=== PATIENT | male | born 1980 | race Caucasian/White ===

== ENCOUNTER 2024-08-18 23:09 | Emergency (ER) | payer OTHER ==
[~2024-08-18] VITALS: Ht 180.3 cm; Wt 108.9 kg
[~2024-08-18 23:09] MED LIST: ATOR20; CENTRUM SILVER1 EAC2; ENFAMIL DHA-ARA59 ML; FARXIGA10 MG PO; METF500 PO; Prinivil10 MG; ROSUVASTATIN CA20 MG
[2024-08-18 23:42] LABS: BASOPHILS ABSOLUTE AUTO 0.04 K/mm3 (0.00-0.23); BASOPHILS PERCENT AUTO 1 % (0-2); EOSINOPHILS ABSOLUTE AUTO 0.07 K/mm3 (0.00-0.68); EOSINOPHILS PERCENT AUTO 1 % (0-6); Hematocrit 44.7 % (37.0-53.0); Hemoglobin 16.2 g/dL (13.5-17.5); IMMATURE GRAN ABSOLUTE AUTO 0.02 K/mm3 (0.00-0.10); IMMATURE GRAN PERCENT AUTO 0 % (0-1); LYMPHOCYTES ABSOLUTE AUTO 1.28 K/mm3 (0.84-5.20); LYMPHOCYTES PERCENT AUTO 18 % (21-46); MONOCYTES PERCENT AUTO 11 % (4-13); Mean Corpuscular HGB 31.5 pg (26.0-34.0); Mean Corpuscular HGB Conc 36.2 g/dL (31.5-36.5); Mean Corpuscular Volume 87 fL (80-100); Mean Platelet Volume 9.9 fL (9.1-12.4); NEUTROPHILS PERCENT AUTO 69 % (41-73); Platelet Count 189 K/mm3 (150-400); RDW Coefficient Variation 13.4 % (11.7-14.2); RDW Standard Deviation 42.1 fL (35.1-46.3); Red Blood Cell Count 5.14 M/mm3 (4.30-5.90); White Blood Cell Count 7.11 K/mm3 (4.00-11.30)
[2024-08-18] MEDS ORDERED: NS 1,000 ML IV SCH (23:55)
[2024-08-18] MEDS ORDERED: Ketorolac Tromethamine 15mg Vial IV ONE (23:55)
[2024-08-18 23:56] LABS: CORONAVIRUS COVID-19 AG Positive (NEGATIVE); INFLUENZA A AG Negative (NEGATIVE); INFLUENZA B AG Negative (NEGATIVE)
[2024-08-19] LABS: Albumin, Blood 4.2 g/dL (3.4-5.0); Albumin/Globulin Ratio 1.1 (0.8-1.8); Bilirubin, Total 0.5 mg/dL (0.1-1.0); Bun/Creatinine Ratio 23.1 (12.0-20.0); Calcium, Blood 9.5 mg/dL (8.5-10.1); Creatinine, Blood 1.04 mg/dL (0.60-1.20); Globulin, Blood 3.7 g/dL (2.2-4.0); Potassium, Blood 3.8 mmol/L (3.5-5.5); Total Protein, Blood 7.9 g/dL (6.4-8.2)
[2024-08-19 00:45] VITALS: BP 126/75
== END 2024-08-19 00:55 | disposition home or self-care (01) ==
LOC: ER 23:09
PROVIDERS: Student in an Organized Health Care Education/Training Program
DX: U07.1 COVID-19 (principal); E11.9 Type 2 diabetes mellitus without complications
CPT/HCPCS: 71046; 80053; 85025; 87428-QW; 96374; 99283-25; J1885; J7030

== ENCOUNTER 2024-09-06 22:12 | Emergency (ER) | payer OTHER ==
[~2024-09-06] VITALS: Ht 180.3 cm; Wt 108.9 kg
[2024-09-06 22:34] VITALS: BP 154/94
== END 2024-09-06 22:44 | disposition home or self-care (01) ==
LOC: ER 22:12
DX: I82.401 Acute embolism and thrombosis of unspecified deep veins of right lower extremity (principal); Z79.84 Long term (current) use of oral hypoglycemic drugs; Z79.899 Other long term (current) drug therapy